=== PATIENT | female | born 1985 | race Caucasian/White ===

== ENCOUNTER 2017-01-15 15:50 | Emergency (ER) | payer MEDICAID ==
[2017-01-15 16:10] VITALS: BP 156/90
--- NOTE | 2017-01-15 16:21 | ERNOTE ---
Time Seen by Provider: 01/15/17 16:13 Stated Complaint: SINUS INFECTION Source: patient Exam Limitations: no limitations Immunizations: IMMUNIZATION HX Immunizations Up to Date Yes History of Influenza Vaccine No Hx Pneumococcal Vaccination No Allergies/Adverse Reactions: Allergies No Known Allergies Allergy (Verified 01/15/17 16:10) Home Medications: HOME MEDICATIONS Gabapentin 300 mg PO TID 03/28/16 [Last Taken Unknown] Omeprazole [Prilosec] 40 mg PO DAILY 03/28/16 [Last Taken Unknown] metFORMIN HCL [Glucophage] 1,000 mg PO BIDWM 03/28/16 [Last Taken Unknown] Amoxicillin 500 mg PO TID #30 capsule 01/15/17 [Last Taken Unknown] Citalopram Hydrobromide [Citalopram HBr] 40 mg PO DAILY 01/15/17 [Last Taken Unknown] Citalopram Hydrobromide [Citalopram HBr] 40 mg PO DAILY #7 tablet 01/15/17 [ Last Taken Unknown] Gabapentin [Neurontin] 600 mg PO TID 01/15/17 [Last Taken Unknown] Montelukast Sodium [Singulair] 10 mg PO DAILY 01/15/17 [Last Taken Unknown] Naproxen [Naprosyn] 500 mg PO PRN PRN 01/15/17 [Last Taken Unknown] traZODone HCL [Trazodone HCl] 200 mg PO HS 01/15/17 [Last Taken Unknown] - History of Present Ilness Narrative: Here for left-sided facial pain and pressure. Patient also feels a little dizzy. She is also out of her Celexa and requests refill for 2 more days until she can see her primary care physician. She denies any fevers or chills nausea or vomiting. Denies any cough or congestion. Review of Systems - Review of Systems Constitutional: Present: no symptoms reported EYE: Present: no symptoms reported ENT: Present: See HPI Respiratory: Present: no symptoms reported Cardiology: Present: no symptoms reported Gastrointestinal/Abdominal: Present: no symptoms reported Genitourinary: Present: no symptoms reported Musculoskeletal: Present: no symptoms reported Skin: Present: no symptoms reported - Patient's Past Medical History Patient History - Medical: Anxiety, Chronic Pain, Diabetes Type 2, Depression, Seizures, Other Patient History - Cardiac/Respiratory: Asthma Patient History - Cancer: No Hx of Cancer Patient History - Surgical Procedures: Cholecystectomy, , Tubal Ligation Patient History - Other: None LMP (females 10-50): 1 month - Social History Living Situations: spouse Abuse History: No History of abuse Psych History: Hx of Anxiety, Hx of Depression Smoking Status: Current every day smoker Have you smoked in the past 12 months: Yes Do you dip or chew tobacco: No Alcohol Use: rarely Drug Use: none - Immunizations Immunizations Up to Date: Yes Hx Pneumococcal Vaccination: No History of Influenza Vaccine: No Physical Exam - Physical Exam General Appearance: Present: wd/wn, alert, no apparent distress Head Exam: Present: normal inspection, other - patient does have tenderness upon palpation of the left maxillary sinus region. Also has some postnasal drainage upon examining the pharynx Eye Exam: Normal inspection: bilateral, PERRL: bilateral Ears, Nose, Throat: Present: normal ENT inspection, normal pharynx - posterior pharyngeal mucus noted Neck: Present: normal inspection, nontender, supple, full range of motion Respiratory: Present: no respiratory distress, normal breath sounds, no accessory muscle use, chest nontender, lungs clear Cardiovascular/Chest: Present: regular rate, rhythm, no murmur, normal peripheral pulses Gastrointestinal/Abdominal: Present: normal bowel sounds Back Exam: Present: normal inspection Neurological Exam: Present: alert, oriented, normal mood/affect ED Progress - Vital Signs Patient's Vital Signs:: I have reviewed the patient's vital signs. Vital Signs: Vital Signs 01/15/17 16:02 Temperature 36.7 C Pulse Rate 87 Respiratory 16 Rate Blood Pressure 156/90 O2 Sat by Pulse 95 Oximetry - Progress/Reassessment Chief Complaint: Upper Respiratory Symptoms Plan - Plan Plan: This patient has sinusitis by my clinical examination. Departure - Departure Clinical Impression: Sinusitis Qualifiers: Sinusitis location: unspecified location Chronicity: acute Recurrence: not specified as recurrent Qualified Code(s): J01.90 - Acute sinusitis, unspecified Disposition: Home self-care Condition: Good Instructions: Sinusitis, Adult, [id number] Prescriptions: Amoxicillin 500 mg PO TID #30 capsule Citalopram Hydrobromide [Citalopram HBr] 40 mg PO DAILY #7 tablet
== END 2017-01-15 16:23 | disposition home or self-care (01) ==
LOC: ER 15:50
DX: J01.90 Acute sinusitis, unspecified (principal); F17.200 Nicotine dependence, unspecified, uncomplicated; E11.9 Type 2 diabetes mellitus without complications; R56.9 Unspecified convulsions; F32.9 Major depressive disorder, single episode, unspecified

== ENCOUNTER 2017-05-14 12:01 | Emergency (ER) | payer MEDICAID ==
[2017-05-14 12:52] LABS: Urine Bilirubin Negative (NEGATIVE); Urine Blood Negative /ul (NEGATIVE); Urine Ketone Negative (NEGATIVE); Urine Nitrite Negative (NEGATIVE); Urine Protein Negative (NEGATIVE); Urine Specific Gravity >=1.030 SP.GR. (1.005-1.010); Urine Urobilinogen Normal (NORMAL); Urine pH 5.5 pH (5.0-7.0)
[2017-05-14 13:00] LABS: Urine Appearance Clear; Urine Bacteria None Seen; Urine Color Yellow; Urine RBC None Seen /hpf (0-5); Urine WBC None Seen /hpf (0-5)
--- NOTE | 2017-05-14 13:25 | ERNOTE ---
Medical Problem HPI - Narrative Date of Service: 05/14/17 - General Chief Complaint: General Assessment Time Seen by Provider: 05/14/17 12:27 Source: patient, RN notes reviewed Exam Limitations: no limitations - Immun/Allergies/Home Medications Immunizations: IMMUNIZATION HX Immunizations Up to Date Yes History of Influenza Vaccine No Hx Pneumococcal Vaccination No Allergies/Adverse Reactions: Allergies No Known Allergies Allergy (Verified 01/15/17 16:10) Home Medications: HOME MEDICATIONS Gabapentin 1,200 mg PO HS 03/28/16 [Last Taken Unknown] Omeprazole [Prilosec] 40 mg PO DAILY 03/28/16 [Last Taken Unknown] metFORMIN HCL [Glucophage] 1,000 mg PO BIDWM 03/28/16 [Last Taken Unknown] Gabapentin [Neurontin] 600 mg PO BID 01/15/17 [Last Taken Unknown] Montelukast Sodium [Singulair] 10 mg PO DAILY 01/15/17 [Last Taken Unknown] traZODone HCL [Trazodone HCl] 300 mg PO HS 01/15/17 [Last Taken Unknown] Venlafaxine HCl [Effexor] 225 mg PO DAILY 05/14/17 [Last Taken Unknown] - History of Present History Narrative: 32 year old female presents to the ED for not feeling well for about 2 weeks. She reports having intermittent low grade fevers. She have been having post nasal drip and urinary frequency. Her daughter is being seen for a fever. She reports that she thought she might as well be seen too since her daughter is here. Review of Systems - Review of Systems Constitutional: Present: fever, fatigue, malaise. Absent: chills EYE: Present: no symptoms reported ENT: Present: nasal drainage. Absent: ear pain, nose congestion, sore throat Respiratory: Absent: shortness of breath, cough Cardiology: Absent: chest pain, syncope Gastrointestinal/Abdominal: Absent: nausea, vomiting, abdominal pain Genitourinary: Present: frequency, dysuria. Absent: hematuria Musculoskeletal: Absent: back pain, muscle pain Skin: Absent: rash, lesions Neurological: Absent: headache, dizziness/light-headedness Endocrine: Present: no symptoms reported Hematologic/Lymphatic: Present: no symptoms reported Psych: Present: no symptoms reported - Patient's Past Medical History Patient History - Medical: Anxiety, Chronic Pain, Diabetes Type 2, Depression, Obesity, Seizures, Other Patient History - Cardiac/Respiratory: Asthma Patient History - Cancer: No Hx of Cancer Patient History - Surgical Procedures: Cholecystectomy, , Tubal Ligation Patient History - Other: None LMP (females 10-50): last week - Social History Living Situations: significant other Abuse History: No History of abuse Psych History: Hx of Anxiety, Hx of Depression Smoking Status: Current every day smoker Have you smoked in the past 12 months: Yes Do you dip or chew tobacco: No Alcohol Use: rarely Drug Use: marijuana - Immunizations Immunizations Up to Date: Yes Hx Pneumococcal Vaccination: No History of Influenza Vaccine: No Physical Exam - Physical Exam General Appearance: Present: alert, no apparent distress, obese, other - Disheveled, appears to be wearing pajamas Head Exam: Present: normal inspection Eye Exam: Normal inspection: bilateral Ears, Nose, Throat: Present: normal ENT inspection, normal pharynx Neck: Present: normal inspection, nontender, supple Respiratory: Present: no respiratory distress, normal breath sounds, no accessory muscle use, lungs clear Cardiovascular/Chest: Present: regular rate, rhythm, no murmur Back Exam: Present: normal inspection, no CVA tenderness Extremity Exam: Present: normal inspection, no edema Neurological Exam: Present: alert, oriented, normal mood/affect, no motor/ sensory deficits Skin Exam: Present: normal color, warm/dry ED Progress - Results and Orders Patient's Lab Results:: I have reviewed the patient's lab results. - Vital Signs Patient's Vital Signs:: I have reviewed the patient's vital signs. Vital Signs: Vital Signs 05/14/17 12:14 Temperature 36.8 C Pulse Rate 98 Respiratory 16 Rate Blood Pressure 130/75 O2 Sat by Pulse 97 Oximetry - Progress/Reassessment Chief Complaint: General Assessment Progress:: Unchanged Plan - Plan Plan: UA without findings, patient is afebrile with stable vitals and no other specific complaints. Discussed need to f/u with PCP if "fevers" continue. Departure Clinical Impression: Malaise - Departure Disposition: Home self-care Condition: Good Additional Instructions: Follow up with your PCP for new/worsening symptoms
[2017-05-14 13:43] VITALS: BP 125/70
== END 2017-05-14 13:35 | disposition home or self-care (01) ==
LOC: ER 12:01
DX: R53.81 Other malaise (principal); G89.29 Other chronic pain; E11.9 Type 2 diabetes mellitus without complications; F41.8 Other specified anxiety disorders; F17.200 Nicotine dependence, unspecified, uncomplicated

== ENCOUNTER 2017-08-09 09:30 | Emergency (ER) | payer MEDICAID ==
[2017-08-09] MEDS ORDERED: ALBUTEROL SULFATE/IPRATROPIUM 3 ML NEBU IH ONE ×2 (09:53→09:54)
[2017-08-09] MEDS ORDERED: predniSONE 20 MG TABLET PO ONE (09:56)
[2017-08-09] MEDS ORDERED: KETOROLAC TROMETHAMINE 60 MG/2 ML VIAL IM ONE ×2 (09:56→09:59)
--- NOTE | 2017-08-09 09:59 | ERNOTE ---
Time Seen by Provider: 08/09/17 09:53 Stated Complaint: URI Presenting Symptoms:: cough, other - wheezing and body aches Source: patient Exam Limitations: no limitations Immunizations: IMMUNIZATION HX Immunizations Up to Date Yes History of Influenza Vaccine No Hx Pneumococcal Vaccination No Allergies/Adverse Reactions: Allergies No Known Allergies Allergy (Verified 01/15/17 16:10) Home Medications: HOME MEDICATIONS Gabapentin 1,200 mg PO HS 03/28/16 [Last Taken Unknown] Omeprazole [Prilosec] 40 mg PO DAILY 03/28/16 [Last Taken Unknown] metFORMIN HCL [Glucophage] 1,000 mg PO BIDWM 03/28/16 [Last Taken Unknown] Gabapentin [Neurontin] 600 mg PO BID 01/15/17 [Last Taken Unknown] Montelukast Sodium [Singulair] 10 mg PO DAILY 01/15/17 [Last Taken Unknown] traZODone HCL [Trazodone HCl] 300 mg PO HS 01/15/17 [Last Taken Unknown] Venlafaxine HCl [Effexor] 225 mg PO DAILY 05/14/17 [Last Taken Unknown] Albuterol Sulfate [Ventolin HFA] 2 puff IH Q6H PRN 7 Days inhaler 08/09/17 [ Last Taken Unknown] Azithromycin [Zithromax] 250 mg PO DAILY #6 tablet 08/09/17 [Last Taken Unknown] predniSONE [Deltasone] 20 mg PO BID #10 tablet 08/09/17 [Last Taken Unknown] - History of Present Ilness Narrative: Patient is an day 4 of body aches, wheezing and low-grade fever. She rates the symptoms as moderate in severity. Timing: constant Severity: moderate Frequency/Possible Cause: Reports: no prior episodes Modifying Factors - Improves: Reports: nothing Modifying Factors - Worsens: Reports: nothing Associated Symptoms: Reports: wheezing, muscle aches Review of Systems - Review of Systems Constitutional: Present: See HPI, chills EYE: Present: no symptoms reported ENT: Present: no symptoms reported Respiratory: Present: wheezing Cardiology: Present: no symptoms reported Gastrointestinal/Abdominal: Present: no symptoms reported Genitourinary: Present: no symptoms reported Musculoskeletal: Present: no symptoms reported Skin: Present: no symptoms reported Neurological: Present: no symptoms reported Endocrine: Present: no symptoms reported Hematologic/Lymphatic: Present: no symptoms reported Psych: Present: no symptoms reported - Patient's Past Medical History Patient History - Medical: Anxiety, Chronic Pain, Diabetes Type 2, Depression, Obesity, Seizures, Other Patient History - Cardiac/Respiratory: Asthma Patient History - Cancer: No Hx of Cancer Patient History - Surgical Procedures: Cholecystectomy, , Tubal Ligation Patient History - Other: None LMP (females 10-50): 2 months - Social History Living Situations: alone Abuse History: No History of abuse Psych History: Hx of Anxiety, Hx of Depression Smoking Status: Current every day smoker Have you smoked in the past 12 months: Yes Do you dip or chew tobacco: No Alcohol Use: none Drug Use: none - Immunizations Immunizations Up to Date: Yes Hx Pneumococcal Vaccination: No History of Influenza Vaccine: No Physical Exam - Physical Exam General Appearance: Present: wd/wn, alert, moderate distress Head Exam: Present: normal inspection, no evidence of injury Eye Exam: Normal inspection: bilateral, PERRL: bilateral Ears, Nose, Throat: Present: pharyngeal erythema - cobblestone appearance Neck: Present: normal inspection, nontender Respiratory: Present: no accessory muscle use, chest nontender, wheezing - mild wheezing heard throughout Cardiovascular/Chest: Present: regular rate, rhythm, no murmur, normal peripheral pulses Gastrointestinal/Abdominal: Present: normal bowel sounds, nontender, nondistended, soft, no organomegaly Rectal Exam: Present: deferred Back Exam: Present: normal inspection, normal range of motion Extremity Exam: Present: normal inspection, non-tender, no edema, normal range of motion Neurological Exam: Present: alert, oriented, normal mood/affect Skin Exam: Present: normal color, warm/dry Lymphatic Exam: Present: no adenopathy ED Progress - Results and Orders Patient's Lab Results:: I have reviewed the patient's lab results. - Vital Signs Patient's Vital Signs:: I have reviewed the patient's vital signs. Vital Signs: Vital Signs 08/09/17 09:38 Temperature 37.3 C Pulse Rate 93 Respiratory 24 H Rate Blood Pressure 131/71 O2 Sat by Pulse 95 Oximetry - Progress/Reassessment Chief Complaint: Upper Respiratory Symptoms Progress:: Improved Plan - Plan Plan: Patient appears to have asthmatic bronchitis with bronchospasm. We will start her on a Z-Marc, prednisone and a Ventolin inhaler and she'll follow-up with her family doctor as needed. Departure Clinical Impression: Bronchospasm with bronchitis, acute Asthma Qualifiers: Asthma severity: moderate Asthma persistence: persistent Asthma complication type: with acute exacerbation Qualified Code(s): J45.41 - Moderate persistent asthma with (acute) exacerbation - Departure Disposition: Home self-care Condition: Good Instructions: Bronchospasm, Adult, [id number], Asthma, Adult, [id number], Acute Bronchitis Prescriptions: Albuterol Sulfate [Ventolin HFA] 2 puff IH Q6H PRN 7 Days inhaler PRN Reason: Wheezing Azithromycin [Zithromax] 250 mg PO DAILY #6 tablet predniSONE [Deltasone] 20 mg PO BID #10 tablet
[2017-08-09] MEDS ORDERED: predniSONE 20 MG TABLET ONE ×2 (10:00→10:07)
[2017-08-09 10:49] VITALS: BP 121/56
== END 2017-08-09 10:49 | disposition home or self-care (01) ==
LOC: ER 09:30
DX: J45.41 Moderate persistent asthma with (acute) exacerbation (principal); E11.9 Type 2 diabetes mellitus without complications; F17.200 Nicotine dependence, unspecified, uncomplicated; E66.9 Obesity, unspecified; Z68.36 Body mass index [BMI] 36.0-36.9, adult

== ENCOUNTER 2017-08-10 15:42 | Emergency (ER) | payer MEDICAID ==
[2017-08-10] MEDS ORDERED: ALBUTEROL SULFATE 2.5 MG/0.5 ML VIAL.NEB IH ONE (15:54)
[2017-08-10] MEDS ORDERED: predniSONE 20 MG TABLET PO ONE (16:01)
[2017-08-10] MEDS ORDERED: predniSONE 20 MG TABLET ONE (16:04)
[2017-08-10 16:05] LABS: Hematocrit 36.7 % (37.0-47.0); Hemoglobin 12.3 gm/dL (12.5-16.0); Mean Corpuscular Hemoglobin 27.8 pg (27-31); Mean Corpuscular Hgb Conc 33.5 g/dl (32-36); Mean Platelet Volume 9.5 fl (6.0-9.5); Neutrophil # 3.1 K/mm3 (1.3-6.0); Neutrophil % 52.1 % (42-75.0); Platelet Count 243 K/mm3 (150-450); Red Blood Count 4.42 M/mm3 (4.2-5.4); Red Cell Distribution Width 13.6 % (11.5-14.0)
--- NOTE | 2017-08-10 16:05 | ERNOTE ---
Dyspnea - General Presenting Symptoms: shortness of breath Time Seen by Provider: 08/10/17 15:42 Source: patient Exam Limitations: no limitations - Immun/Allergies/Home Medications Immunizations: IMMUNIZATION HX Immunizations Up to Date Yes History of Influenza Vaccine No Hx Pneumococcal Vaccination No Allergies/Adverse Reactions: Allergies No Known Allergies Allergy (Verified 01/15/17 16:10) Home Medications: HOME MEDICATIONS Gabapentin 1,200 mg PO HS 03/28/16 [Last Taken Unknown] Omeprazole [Prilosec] 40 mg PO DAILY 03/28/16 [Last Taken Unknown] metFORMIN HCL [Glucophage] 1,000 mg PO BIDWM 03/28/16 [Last Taken Unknown] Gabapentin [Neurontin] 600 mg PO BID 01/15/17 [Last Taken Unknown] Montelukast Sodium [Singulair] 10 mg PO DAILY 01/15/17 [Last Taken Unknown] traZODone HCL [Trazodone HCl] 300 mg PO HS 01/15/17 [Last Taken Unknown] Venlafaxine HCl [Effexor] 225 mg PO DAILY 05/14/17 [Last Taken Unknown] Albuterol Sulfate 2.5 mg IH QID #30 vial.neb 08/09/17 [Last Taken Unknown] Albuterol Sulfate [Ventolin HFA] 2 puff IH Q6H PRN 7 Days inhaler 08/09/17 [ Last Taken Unknown] Azithromycin [Zithromax] 250 mg PO DAILY #6 tablet 08/09/17 [Last Taken Unknown] predniSONE [Deltasone] 20 mg PO BID #10 tablet 08/09/17 [Last Taken Unknown] Albuterol Sulfate 2.5 mg IH Q4H PRN #25 vial.neb 08/10/17 [Last Taken Unknown] predniSONE [Prednisone] 3 tab PO DAILY #12 tab 08/10/17 [Last Taken Unknown] - History of Present Illness Narrative: Patient has had URI symptoms with shortness of breath for five days, was seen in the ER yesterday, influenza negative, was started on steroids and Zpack. Has not taken prednisone today yet, shortness of breath worse, cough with yellow sputum Date (Duration): 08/06/17 - Patient's Past Medical History Patient History - Medical: Anxiety, Chronic Pain, Diabetes Type 2, Depression, Obesity, Seizures, Other Patient History - Cardiac/Respiratory: Asthma Patient History - Cancer: No Hx of Cancer Patient History - Surgical Procedures: Cholecystectomy, , Tubal Ligation Patient History - Other: None LMP (females 10-50): 2 months - Social History Living Situations: home Abuse History: No History of abuse Psych History: Hx of Anxiety, Hx of Depression Smoking Status: Current every day smoker Alcohol Use: none Drug Use: none - Immunizations Immunizations Up to Date: Yes Hx Pneumococcal Vaccination: No History of Influenza Vaccine: No Physical Exam - Physical Exam General Appearance: Present: wd/wn, alert, moderate distress, anxious Head Exam: Present: normal inspection Eye Exam: Normal inspection: bilateral Ears, Nose, Throat: Present: normal ENT inspection, normal pharynx Respiratory: Present: decreased breath sounds, expiration (prolonged), wheezing Cardiovascular/Chest: Present: regular rate, rhythm, no murmur Gastrointestinal/Abdominal: Present: nontender Extremity Exam: Present: no edema Neurological Exam: Present: alert, oriented, normal mood/affect Skin Exam: Present: normal color, warm/dry ED Progress - Results and Orders Patient's Lab Results:: I have reviewed the patient's lab results. - Vital Signs Patient's Vital Signs:: I have reviewed the patient's vital signs. Vital Signs: Vital Signs 08/10/17 08/10/17 08/10/17 15:44 15:53 15:55 Temperature 36.3 C L 36.3 C L Pulse Rate 107 H 103 H 101 H Respiratory 30 H 27 H 27 H Rate Blood Pressure 132/82 132/82 O2 Sat by Pulse 93 97 97 Oximetry - EKG EKG: NSR - sinustachy, other - no acute symptoms besides rate EKG read: Interp. by me - X-Ray X-Ray #1 X-Ray: chest - no acute findings Interpretation: Interp. by me - Progress/Reassessment Chief Complaint: Dyspnea Progress Note-Subjective: 08/10/17 16:02 improved airmovement after albuterol, patient calmer with decreased respiratory rate 08/10/17 17:33 patient feeling much better, still some wheezing, but good air movement, O2 sat 96-97% on RA had not filled her medications yet and would like to have them called in to [facility] in [place] [facility] Departure Clinical Impression: Anxiety Asthma Qualifiers: Asthma severity: mild Asthma persistence: unspecified Asthma complication type : uncomplicated Qualified Code(s): J45.909 - Unspecified asthma, uncomplicated - Departure Disposition: Home Follow Up Needed Condition: Good Instructions: Asthma, Adult, [id number] Additional Instructions: call your doctor in [place] for follow Prescriptions: Albuterol Sulfate 2.5 mg IH Q4H PRN #25 vial.neb PRN Reason: Shortness Of Breath/Wheezing predniSONE [Prednisone] 3 tab PO DAILY #12 tab
[2017-08-10 16:31] LABS: Albumin * 3.2 gm/dl (3.4-5.0); Anion Gap 17.8 mmol/L (6.8-13.8); BUN/Creatinine Ratio 7.2 (9.0-21.6); Bilirubin, Total 0.3 mg/dL (0.0-1.1); Ca. Corrected For Albumin 8.8 mg/dL (8.4-10.2); Calcium * 8.5 mg/dL (7.9-10.9); Carbon Dioxide 23.3 mmol/L (24-32.6); Potassium 4.1 mmol/L (3.4-4.6); Total Protein 7.3 gm/dL (6.2-8.2)
[2017-08-10 17:29] VITALS: BP 121/68
== END 2017-08-10 17:45 | disposition home or self-care (01) ==
LOC: ER 15:42
DX: J45.909 Unspecified asthma, uncomplicated (principal); F17.200 Nicotine dependence, unspecified, uncomplicated